=== PATIENT | female | born 1975 | race Caucasian/White ===

== ENCOUNTER 2018-12-27 13:42 | Emergency (ER) | payer OTHER ==
[~2018-12-27] VITALS: Ht 170.1 cm; Wt 87.5 kg
--- NOTE | ~2018-12-27 | EKG ---
[place], [place] ELECTROCARDIOGRAM REPORT NAME: NASIM DOS SANTOS UNIT #: [id number] ROOM: DOCTOR: EUGENIE DRAFT REPORT BIRTHDATE: [birth year] [facility] Test Date: 2018-12-27 Test Time: 14:45:54 Pat Name: NASIM DOS SANTOS Department: Room: Gender: F [employer]ile [employer]: : 1975 Requested By: NIMA TAY Order Number: [id number] Reading MD: Tori Sinclair MD Measurements Intervals [place] Rate: 113 P: 33 RI: 145 QRS: 59 QRSD: 95 T: 29 QT: 346 QTc: 475 Interpretive Statements Sinus tachycardia Abnormal inferior Q waves Baseline wander in lead(s) V4 No previous ECG available for comparison Electronically Signed On 12-28-2018 14:41:16 PST by Tori Sinclair MD CM:EKGRPT:ELECTROCARDIOGRAM REPORT [id number] NIMA TRAORE DRAFT REPORT NIMA HARE
[2018-12-27 15:12] LABS: BASO # 0.1 10*3/uL (0.0-0.1); BASO % 0.6 % (0.0-1.0); EOS % 0.1 % (1.0-4.0); HEMATOCRIT 46.9 % (37.0-47.0); HEMOGLOBIN 15.7 g/dl (12.0-16.0); LYMPH # 1.7 10*3/uL (1.3-4.4); MEAN CELL VOLUME 86.7 fl (81.0-99.0); MEAN CORPUSCULAR HGB CONC 33.5 g/dl (33.0-37.0); MEAN PLATELET VOLUME 10.2 fl (9.6-12.3); MONO % 6.8 % (3.0-9.0); NEUT # 11.3 10*3/uL (2.3-7.9); NEUT % 79.9 % (47.0-73.0); PLATELET COUNT AUTOMATED 342 10*3/uL (130-400); RED BLOOD COUNT 5.41 10*6/uL (4.10-5.10); RED CELL DISTRI WIDTH 13.1 % (0-14.5); WHITE BLOOD COUNT 14.1 10*3/uL (4.8-10.8)
[2018-12-27 15:25] LABS: ACT PARTIAL THROMBO TIME 23.8 SECONDS (20.0-32.1)
[2018-12-27 15:29] LABS: ALBUMIN 3.5 gm/dl (3.1-4.5); ALKALINE PHOSPHATASE 70 U/L (45-117); BUN 28 mg/dl (7-24); CHLORIDE 98 mmol/L (98-107); CREATININE 1.69 mg/dL (0.55-1.02); LIPASE 253 U/L (73-393); SGOT/AST 8 IU/L (3-35); SGPT/ALT 16 U/L (12-78); SODIUM 134 mmol/L (136-145)
[2018-12-27 15:30] LABS: TROPONIN I < 0.015 ng/ml (<0.045)
[2018-12-27 16:47] LABS: BILIRUBIN NEGATIVE (NEGATIVE); BLOOD TRACE-INTACT (NEGATIVE); CLARITY CLOUDY (CLEAR); COLOR YELLOW (YELLOW); GLUCOSE 3+ (NEGATIVE); KETONE 1+ (NEGATIVE); LEUKO ESTERASE NEGATIVE (NEGATIVE); NITRITE NEGATIVE (NEGATIVE); SPECIFIC GRAVITY 1.025 (1.005-1.030); UROBILINOGEN 0.2 E.U./dl (0.2-1.0)
[2018-12-27 16:54] LABS: BACTERIA 4+; WBC TNTC wbc/hpf (0-5)
== END 2018-12-27 21:10 | disposition short-term general hospital (02) ==
LOC: ED 13:42
PROVIDERS: Physician Assistant
DX: I63.9 Cerebral infarction, unspecified (principal); N39.0 Urinary tract infection, site not specified; R55 Syncope and collapse; E11.65 Type 2 diabetes mellitus with hyperglycemia; I10 Essential (primary) hypertension; Z88.8 Allergy status to other drugs, medicaments and biological substances